=== PATIENT | male | born 2000 | race Caucasian/White ===

== ENCOUNTER 2022-11-30 21:59 | Inpatient (IN) | payer MEDICAID ==
[~2022-11-30] VITALS: Ht 165.1 cm; Wt 84.4 kg
[2022-11-30 23:22] LABS: BASOPHILS % (AUTO) 0.7 % (0.0-2.0); HEMATOCRIT 44.8 % (41-53); LYMPHOCYTES # (AUTO) 1.8 K/uL (1.0-4.8); LYMPHOCYTES % (AUTO) 28.7 % (22.0-44.0); MEAN CORPUSCULAR HEMOGLOBIN 29.5 pg (26.0-34.0); MEAN CORPUSCULAR HGB CONC 33.4 G/dL (31.0-37.0); MEAN CORPUSCULAR VOLUME 88 fL (80-100); MONOCYTES # (AUTO) 0.6 K/uL (0.1-1.0); MONOCYTES % (AUTO) 9.6 % (2.0-9.0); NEUTROPHILS # (AUTO) 3.6 K/uL (1.8-7.7); PLATELET COUNT (AUTO) 386 K/uL (150-450); RED BLOOD CELL COUNT(AUTO) 5.07 MIL/uL (4.50-5.90); RED CELL DISTRIBUTION WIDTH 13.3 % (11.5-14.5)
[2022-11-30 23:32] LABS: ANION GAP 12 mmol/L (8-16); CALCIUM, TOTAL 8.7 mg/dL (8.8-10.5); CARBON DIOXIDE 27 mmol/L (22-29); CHLORIDE 105 mmol/L (98-107); CREATININE 0.68 mg/dL (0.60-1.30); GLOMERULAR FILTR. RATE CALC > 60 mL/min (>60); GLUCOSE,RANDOM 107 mg/dL (70-110); POTASSIUM 3.7 mmol/L (3.5-5.1); SODIUM SERUM 144 mmol/L (136-145)
[2022-11-30 23:39] LABS: ALANINE AMINOTRANSFERASE 34 U/L (12-78); ALKALINE PHOSPHATASE 122 U/L (46-116); ASPARTATE AMINOTRANSFERASE 21 U/L (15-37); BILIRUBIN,TOTAL 0.2 mg/dL (0.1-1.0); PHOSPHORUS 3.4 mg/dL (2.5-4.9); TOTAL PROTEIN, SERUM 8.5 g/dL (6.4-8.2)
[2022-11-30 23:41] LABS: SALICYLATE 0.7 mg/dL (2.8-20.0)
[2022-11-30 23:49] LABS: ACETAMINOPHEN < 2 mcg/mL (10-30)
[2022-12-01 00:21] LABS: AMPHET/METH SCREEN,URINE NEGATIVE (NEGATIVE); BARBITURATE SCREEN, URINE NEGATIVE (NEGATIVE); BENZODIAZEPINES SCREEN,URINE NEGATIVE (NEGATIVE); CANNABINOID SCREEN,URINE NEGATIVE (NEGATIVE); COCAINE SCREEN,URINE NEGATIVE (NEGATIVE); METHADONE SCREEN, URINE NEGATIVE (NEGATIVE); OPIATE SCREEN,URINE NEGATIVE (NEGATIVE); PHENCYCLIDINE SCREEN,URINE NEGATIVE (NEGATIVE)
[2022-12-01 01:36] LABS: COVID AG,FIA SOURCE NASAL SWAB
[2022-12-01] MEDS ORDERED: LORazepam 2 MG TABLET PO PRN (02:15)
[2022-12-01] MEDS ORDERED: HALOPERIDOL 5 MG TABLET PO PRN (02:15)
[2022-12-01 04:05] VITALS: BP 115/82
[2022-12-01] MEDS ORDERED: ACETAMINOPHEN 325 MG TABLET PO PRN (08:15)
[2022-12-01] MEDS ORDERED: GuaiFENesin/D-METHORPHAN [SUGAR-FREE] 200-20MG/10 ML SYRUP UDCUP PO PRN (08:15)
[2022-12-01] MEDS ORDERED: ONDANSETRON HCL 4 MG TABLET PO PRN (08:15)
[2022-12-01] MEDS ORDERED: NICOTINE 14 MG/24 HOUR PATCH TD PRN (08:15)
[2022-12-01] MEDS ORDERED: CloNIDine HCL 0.1 MG TABLET PO PRN (08:15)
[2022-12-01] MEDS ORDERED: DOCUSATE SODIUM 100 MG CAPSULE PO PRN (08:15)
[2022-12-01] MEDS ORDERED: LOPERAMIDE HCL 2 MG CAPSULE PO PRN (08:15)
[2022-12-01] MEDS ORDERED: MAG HYDROX/AL HYDROX/SIMETH ES 30 ML SUSPENSION UDCUP PO PRN (08:15)
[2022-12-01] MEDS ORDERED: ALBUTEROL SULFATE HFA 90 MCG/PUFF 8 GM INHALER IH PRN (08:15)
[2022-12-01] MEDS ORDERED: MAGNESIUM HYDROXIDE SUSPENSION 30 ML UDCUP PO PRN (08:15)
[2022-12-01] MEDS ORDERED: IBUPROFEN 400 MG TABLET PO PRN (08:15)
[2022-12-01] MEDS ORDERED: PETROLATUM,WHITE 28 GM JELLY TP PRN (08:15)
[2022-12-01 09:08] VITALS: BP 150/91
[2022-12-01] MEDS: SERTRALINE HCL 50 MG TABLET PO SCH (13:32)
[2022-12-01] MEDS: ZOLPIDEM TARTRATE 10 MG TABLET PO PRN (21:40)
[2022-12-02 08:50] VITALS: BP 152/99
[2022-12-02] MEDS: SERTRALINE HCL 50 MG TABLET PO SCH (10:56)
[2022-12-02 20:16] VITALS: BP 122/72
[2022-12-02] MEDS: ZOLPIDEM TARTRATE 10 MG TABLET PO PRN (20:26)
[2022-12-03] MEDS: SERTRALINE HCL 50 MG TABLET PO SCH (08:04)
[2022-12-03 09:00] VITALS: BP 148/84
[2022-12-03] MEDS: ZOLPIDEM TARTRATE 10 MG TABLET PO PRN (20:27)
[2022-12-03 21:32] VITALS: BP 134/98
[2022-12-04] MEDS ORDERED: SERT-439 PO (05:41)
[2022-12-04 08:05] VITALS: BP 123/94
[2022-12-04] MEDS: SERTRALINE HCL 50 MG TABLET PO SCH (08:10)
== END 2022-12-04 16:45 | disposition home or self-care (01) | DRG 751 ==
LOC: EMS 21:59 → 3EI 12-01 03:17
PROVIDERS: ADMIT Psychiatry & Neurology Psychiatry; ATTEND Psychiatry & Neurology Psychiatry
DX: F33.2 Major depressive disorder, recurrent severe without psychotic features (principal); F10.20 Alcohol dependence, uncomplicated; K29.20 Alcoholic gastritis without bleeding; Y90.8 Blood alcohol level of 240 mg/100 ml or more; R10.13 Epigastric pain; T51.0X2A Toxic effect of ethanol, intentional self-harm, initial encounter; T55.0X2A Toxic effect of soaps, intentional self-harm, initial encounter; Z20.822 Contact with and (suspected) exposure to COVID-19; Z79.899 Other long term (current) drug therapy; Z91.51 Personal history of suicidal behavior; Y92.89 Other specified places as the place of occurrence of the external cause
CPT/HCPCS: 80053; 80307; 82009; 82140; 83735; 83930; 83935; 84100; 85025; 93005; 99285; G0480; G0481

== ENCOUNTER 2023-01-01 23:29 | Emergency (ER) | payer MEDICAID ==
[~2023-01-01] VITALS: Ht 165.1 cm; Wt 84.1 kg
[~2023-01-01 23:29] MED LIST: SERT-439 PO
[2023-01-01 23:48] VITALS: BP 150/78; PULSE 75; RESP 18; TEMP 98.4
[2023-01-02] MEDS ORDERED: IBUPROFEN 600 MG TABLET PO ONE (01:00)
== END 2023-01-02 02:14 | disposition home or self-care (01) ==
LOC: EMS 23:30
DX: S62.91XA Unspecified fracture of right hand, initial encounter for closed fracture (principal); R45.851 Suicidal ideations; F12.90 Cannabis use, unspecified, uncomplicated; W19.XXXA Unspecified fall, initial encounter; Y93.89 Activity, other specified; Y92.89 Other specified places as the place of occurrence of the external cause; Y99.8 Other external cause status
CPT/HCPCS: 99284; 73090-TC; 73130-TC; Z7502; Z7610